=== PATIENT | female | born 1955 | race Hispanic/Latino ===

== ENCOUNTER 2016-10-01 12:31 | Outpatient (CLI) | payer OTHER, MEDICARE ==
[2016-10-02 10:49] LABS: Anion Gap 17 mmol/L (10-20); BUN (Urea Nitrogen) 43 mg/dL (9.8-20.1); Calc. Creatinine Clearance 0 mL/min (70-130); Calcium 9.5 mg/dL (7.8-10.44); Carbon Dioxide 22 mmol/L (23-31); Chloride 102 mmol/L (98-107); Estimated GFR-MDRD 25
[2016-10-02 12:37] LABS: Hematocrit 36.8 % (36.0-47.0)
== END 2016-10-01 12:32 | disposition home or self-care (01) ==
LOC: NAVSJIPCSP 12:31
PROVIDERS: ATTEND Internal Medicine Nephrology
DX: I12.9 Hypertensive chronic kidney disease with stage 1 through stage 4 chronic kidney disease, or unspecified chronic kidney disease (principal); N18.4 Chronic kidney disease, stage 4 (severe)
CPT/HCPCS: 36415; 80048; 85014; 85018

== ENCOUNTER 2016-10-10 09:53 | Outpatient (CLI) | payer MEDICARE, OTHER ==
[2016-10-10 12:25] LABS: Hemoglobin A1c 7.9 % (4.0-6.0)
[2016-10-10 12:56] LABS: Anion Gap 16 mmol/L (10-20); BUN (Urea Nitrogen) 45 mg/dL (9.8-20.1); Calc. Creatinine Clearance 0 mL/min (70-130); Calcium 9.7 mg/dL (7.8-10.44); Carbon Dioxide 21 mmol/L (23-31); Estimated GFR-MDRD 26; LDL Cholesterol, Calculated 197 mg/dL
[2016-10-10 14:55] LABS: Chloride 104 mmol/L (98-107)
== END 2016-10-10 09:54 | disposition home or self-care (01) ==
LOC: NAVSJIPCSP 09:53
PROVIDERS: ATTEND Internal Medicine
DX: E78.5 Hyperlipidemia, unspecified (principal); N18.3 Chronic kidney disease, stage 3 (moderate); E10.59 Type 1 diabetes mellitus with other circulatory complications
CPT/HCPCS: 36415; 80048; 80061; 83036

== ENCOUNTER 2017-01-07 08:54 | Outpatient (CLI) | payer OTHER, MEDICARE ==
[2017-01-07 14:31] LABS: Hemoglobin 10.3 g/dL (12.0-16.0); Mean Corpuscular HGB CONC 31.3 g/dL (32.0-36.0); Mean Corpuscular Hemoglobin 27.1 pg (27.0-31.0); Mean Corpuscular Volume 86.4 fL (81.0-99.0); Mean Platelet Volume 8.3 fL (7.4-10.4); Platelet Count 244 thou/uL (130-400); RBC Distribution Width 13.3 % (11.5-14.5); Red Blood Cell (RBC) Count 3.79 mill/uL (4.20-5.40); White Blood Cell (WBC) Count 6.7 thou/uL (4.8-10.8)
[2017-01-07 14:32] LABS: #Basophils 0.1 thou/uL (0.0-0.2); #Eosinphils 0.2 thou/uL (0.0-0.7); #Lymphocytes 1.5 thou/uL (1.20-3.40); #Monocytes 0.5 thou/uL (0.11-0.59); #Neutrophils 4.5 thou/uL (1.40-6.50); %Basophils 0.8 % (0.0-1.0); %Eosinophils 2.7 % (0.0-10.0); %Monocytes 7.9 % (0.0-10.0); %Neutrophils 66.7 % (42.0-75.0)
[2017-01-07 15:09] LABS: Hemoglobin A1c 8.4 % (4.0-6.0)
[2017-01-07 15:29] LABS: Cardiac Risk 5.6 (Less than 4.5)
== END 2017-01-07 08:55 ==
LOC: NAVSJIPCSP 08:54
PROVIDERS: ATTEND Internal Medicine
DX: E78.5 Hyperlipidemia, unspecified (principal); E10.59 Type 1 diabetes mellitus with other circulatory complications; I11.9 Hypertensive heart disease without heart failure
CPT/HCPCS: 36415; 80061; 83036; 85025

== ENCOUNTER 2017-02-03 12:02 | Outpatient (CLI) | payer OTHER, MEDICARE ==
[2017-02-03 12:52] LABS: Calc. Creatinine Clearance 0 mL/min (70-130); Estimated GFR-MDRD 29; Phosphorus 3.5 mg/dL (2.3-4.7)
== END 2017-02-03 12:03 | disposition home or self-care (01) ==
LOC: NAVSJIPCSP 12:02
PROVIDERS: ATTEND Internal Medicine Nephrology
DX: N18.3 Chronic kidney disease, stage 3 (moderate) (principal)
CPT/HCPCS: 36415; 82565; 84100; 84132

== ENCOUNTER 2017-02-26 12:26 | Outpatient (CLI) | payer MEDICARE, OTHER ==
[2017-02-26 14:07] LABS: Hemoglobin 10.6 g/dL (12.0-16.0)
[2017-02-26 14:20] LABS: Anion Gap 16 mmol/L (10-20); BUN (Urea Nitrogen) 58 mg/dL (9.8-20.1); Calc. Creatinine Clearance 0 mL/min (70-130); Calcium 9.6 mg/dL (7.8-10.44); Carbon Dioxide 22 mmol/L (23-31); Chloride 103 mmol/L (98-107); Estimated GFR-MDRD 22; Glucose 127 mg/dL (80-115); Potassium 5.4 mmol/L (3.5-5.1); Sodium 136 mmol/L (136-145)
[2017-02-27 18:01] LABS: Creatinine, Urine 49.15 mg/dL (47-110)
== END 2017-02-26 12:27 | disposition home or self-care (01) ==
LOC: NAV LABSP 12:26
PROVIDERS: ATTEND Internal Medicine Nephrology
DX: N18.4 Chronic kidney disease, stage 4 (severe) (principal)
CPT/HCPCS: 36415; 80048; 82570; 84156; 85014; 85018

== ENCOUNTER 2017-03-19 12:09 | Outpatient (CLI) | payer MEDICARE ==
[2017-03-19 12:32] LABS: Hemoglobin 10.8 g/dL (12.0-16.0)
[2017-03-19 12:36] LABS: Anion Gap 18 mmol/L (10-20); BUN (Urea Nitrogen) 66 mg/dL (9.8-20.1); Calc. Creatinine Clearance 0 mL/min (70-130); Calcium 9.7 mg/dL (7.8-10.44); Carbon Dioxide 20 mmol/L (23-31); Chloride 102 mmol/L (98-107); Estimated GFR-MDRD 23; Glucose 190 mg/dL (80-115); Sodium 135 mmol/L (136-145)
== END 2017-03-19 12:10 | disposition home or self-care (01) ==
LOC: NAVSJIPCSP 12:09
PROVIDERS: ATTEND Internal Medicine Nephrology
DX: I12.9 Hypertensive chronic kidney disease with stage 1 through stage 4 chronic kidney disease, or unspecified chronic kidney disease (principal); N18.4 Chronic kidney disease, stage 4 (severe); R80.9 Proteinuria, unspecified
CPT/HCPCS: 36415; 80048; 85014; 85018

== ENCOUNTER 2017-04-14 08:53 | Outpatient (CLI) | payer MEDICARE ==
[2017-04-14 11:47] LABS: Anion Gap 19 mmol/L (10-20); BUN (Urea Nitrogen) 80 mg/dL (9.8-20.1); Calc. Creatinine Clearance 0 mL/min (70-130); Calcium 9.4 mg/dL (7.8-10.44); Carbon Dioxide 17 mmol/L (23-31); Chloride 101 mmol/L (98-107); Cholesterol 272 mg/dl (< 200 Desired); Estimated GFR-MDRD 16; Glucose 354 mg/dL (80-115); HDL Cholesterol 39 mg/dL (>60 Neg Risk); LDL Cholesterol, Calculated 184 mg/dL; Potassium 5.1 mmol/L (3.5-5.1); Sodium 132 mmol/L (136-145); Triglycerides 243 mg/dL (Less than 150)
[2017-04-14 12:26] LABS: Hemoglobin A1c 9.1 % (4.0-6.0)
== END 2017-04-14 08:54 | disposition home or self-care (01) ==
LOC: NAVSJIPCSP 08:53
PROVIDERS: ATTEND Internal Medicine
DX: E78.5 Hyperlipidemia, unspecified (principal); E10.59 Type 1 diabetes mellitus with other circulatory complications; I13.10 Hypertensive heart and chronic kidney disease without heart failure, with stage 1 through stage 4 chronic kidney disease, or unspecified chronic kidney disease; E10.22 Type 1 diabetes mellitus with diabetic chronic kidney disease; N18.3 Chronic kidney disease, stage 3 (moderate); Z79.899 Other long term (current) drug therapy
CPT/HCPCS: 36415; 80048; 80061; 83036

== ENCOUNTER 2017-10-13 15:30 | Outpatient (CLI) | payer MEDICARE ==
--- NOTE | 2017-10-13 15:57 | RAD ---
PA AND LATERAL VIEWS CHEST: HISTORY: Shortness of breath, wheezing. FINDINGS: There are changes of median sternotomy. The heart is enlarged. There is mild pulmonary vascular con gestion with probable small effusions. No pneumothorax is seen. IMPRESSION: Findings suggestive of mild congestive heart failure. POS: [facility]
== END 2017-10-13 15:31 | disposition home or self-care (01) ==
LOC: NAV RAD 15:30
PROVIDERS: ATTEND Internal Medicine
DX: R06.02 Shortness of breath (principal)
CPT/HCPCS: 71046

== ENCOUNTER 2017-11-10 08:49 | Outpatient (CLI) | payer MEDICARE | END 2017-11-10 08:50 | disposition home or self-care (01) | LOC: NAV ULT 08:49 | PROVIDERS: ATTEND Internal Medicine | DX: I50.9 Heart failure, unspecified (principal); I25.10 Atherosclerotic heart disease of native coronary artery without angina pectoris; I51.7 Cardiomegaly; R93.1 Abnormal findings on diagnostic imaging of heart and coronary circulation | CPT/HCPCS: 93306 ==

== ENCOUNTER 2018-06-30 19:39 | Emergency (ER) | payer MEDICARE ==
[2018-06-30 20:11] LABS: #Basophils 0.1 thou/uL (0.0-0.2); #Eosinphils 0.2 thou/uL (0.0-0.7); #Lymphocytes 0.4 thou/uL (1.20-3.40); #Monocytes 0.4 thou/uL (0.11-0.59); #Neutrophils 8.1 thou/uL (1.40-6.50); %Basophils 0.7 % (0.0-1.0); %Eosinophils 1.9 % (0.0-10.0); %Lymphocytes 4.2 % (21.0-51.0); %Monocytes 4.7 % (0.0-10.0); %Neutrophils 88.5 % (42.0-75.0); Hemoglobin 9.6 g/dL (12.0-16.0); Mean Corpuscular HGB CONC 31.7 g/dL (32.0-36.0); Mean Corpuscular Volume 88.6 fL (78.0-98.0); Mean Platelet Volume 8.7 fL (7.4-10.4); Platelet Count 203 thou/uL (130-400); RBC Distribution Width 12.5 % (11.5-14.5); Red Blood Cell (RBC) Count 3.43 mill/uL (4.20-5.40); White Blood Cell (WBC) Count 9.2 thou/uL (4.8-10.8)
[2018-06-30] MEDS ORDERED: Sodium Chloride 0.9% 1,000 ML ONE (20:24)
[2018-06-30] MEDS ORDERED: Acetaminophen 500 MG TAB ONE (20:24)
[2018-06-30] MEDS ORDERED: Azithromycin 250 MG TAB ONE (20:24)
[2018-06-30 20:36] LABS: Anion Gap 16 mmol/L (10-20); BUN (Urea Nitrogen) 62 mg/dL (9.8-20.1); Calc. Creatinine Clearance 0 mL/min (70-130); Calcium 9.8 mg/dL (7.8-10.44); Carbon Dioxide 21 mmol/L (23-31); Chloride 100 mmol/L (98-107); Estimated GFR-MDRD 18; Glucose 196 mg/dL (80-115); Potassium 4.2 mmol/L (3.5-5.1); Sodium 133 mmol/L (136-145)
[2018-06-30] MEDS ORDERED: cefTRIAXone\\ROCEPHIN 1 GM VIAL ONE (21:20)
[2018-06-30] MEDS ORDERED: Sodium Chloride 0.9% 100 ML ONE (21:20)
--- NOTE | 2018-06-30 22:23 | RAD ---
CHEST PA AND LATERAL: 06/30/18 HISTORY: 62-year-old female with productive cough and fever since yesterday. COMPARISON: 10/13/17. FINDINGS: There is some rotation to the left. Minimal cardiomegaly. Postop midline sternotomy. Increased linear and interstitial markings bilaterally with slight blunting in the costophrenic angles. This certainl y is consistent with some mild vascular congestion, but when compared to the prior study there does n ot appear to be any significant change. No overt edema or confluent pneumonia. IMPRESSION: Cardiomegaly with some stable appearing bilateral vascular congestion and costophrenic angle blunting without significant change from 10/13/17. POS: [facility]
== END 2018-06-30 22:10 | disposition home or self-care (01) ==
LOC: NAV ERS 19:39
DX: R05 Cough (principal); R11.2 Nausea with vomiting, unspecified; R50.9 Fever, unspecified; E11.9 Type 2 diabetes mellitus without complications; E78.00 Pure hypercholesterolemia, unspecified; I10 Essential (primary) hypertension; Z79.4 Long term (current) use of insulin; Z79.899 Other long term (current) drug therapy
CPT/HCPCS: 71046; 80048; 85025; 87804; 96361; 96365; J0696; J7050; J7620

== ENCOUNTER 2018-10-13 13:03 | Outpatient (CLI) | payer MEDICARE ==
[2018-10-13 13:34] LABS: Hemoglobin 10.8 g/dL (12.0-16.0)
[2018-10-13 13:38] LABS: Anion Gap 15 mmol/L (10-20); BUN (Urea Nitrogen) 38 mg/dL (9.8-20.1); Calc. Creatinine Clearance 0 mL/min (70-130); Calcium 10.4 mg/dL (7.8-10.44); Carbon Dioxide 25 mmol/L (23-31); Chloride 103 mmol/L (98-107); Estimated GFR-MDRD 24; Glucose 121 mg/dL (80-115); Potassium 4.3 mmol/L (3.5-5.1); Sodium 139 mmol/L (136-145)
[2018-10-13 13:46] LABS: Follow-up Chemistry Comp? YES; Follow-up Hematology Comp? YES; Follow-up Result - Chemistry REPORT FAXED; Follow-up Result - Hematology REPORT FAXED
== END 2018-10-13 13:04 | disposition home or self-care (01) ==
LOC: NAV LABSP 13:03
PROVIDERS: ATTEND Internal Medicine Nephrology
DX: E11.22 Type 2 diabetes mellitus with diabetic chronic kidney disease (principal); N18.9 Chronic kidney disease, unspecified; D63.1 Anemia in chronic kidney disease; E11.00 Type 2 diabetes mellitus with hyperosmolarity without nonketotic hyperglycemic-hyperosmolar coma (NKHHC)
CPT/HCPCS: 36415; 80048; 85014; 85018

== ENCOUNTER 2018-11-07 10:39 | Emergency (ER) | payer MEDICARE ==
[2018-11-07] MEDS ORDERED: Ondansetron PF 4 MG/2 ML Vial ONE (11:06)
[2018-11-07] MEDS ORDERED: Acetaminophen 500 MG TAB ONE (11:31)
[2018-11-07 11:34] LABS: Band 4 % (5-11); Hemoglobin 11.7 g/dL (12.0-16.0); Lymphocytes 2 % (21-51); MDiff Complete? YES; Mean Corpuscular HGB CONC 31.5 g/dL (32.0-36.0); Mean Corpuscular Hemoglobin 27.7 pg (27.0-31.0); Mean Corpuscular Volume 87.9 fL (78.0-98.0); Mean Platelet Volume 9.2 fL (7.4-10.4); Metamyelocyte 1 % (0-0); Monocytes 10 % (0-10); Neutrophil 83 % (42-75); Platelet Count 136 thou/uL (130-400); RBC Distribution Width 13.5 % (11.5-14.5); Red Blood Cell (RBC) Count 4.21 mill/uL (4.20-5.40); White Blood Cell (WBC) Count 6.9 thou/uL (4.8-10.8)
[2018-11-07 11:35] LABS: ALT (SGPT) 36 U/L (8-55); AST (SGOT) 38 U/L (5-34); Alkaline Phosphatase 112 U/L (40-150); Anion Gap 15 mmol/L (10-20); BUN (Urea Nitrogen) 46 mg/dL (9.8-20.1); Bilirubin, Total 0.4 mg/dL (0.2-1.2); Calc. Creatinine Clearance 0 mL/min (70-130); Calcium 9.9 mg/dL (7.8-10.44); Carbon Dioxide 23 mmol/L (23-31); Chloride 102 mmol/L (98-107); Estimated GFR-MDRD 23; Globulin 3.1 g/dL (2.4-3.5); Glucose 316 mg/dL (80-115); Potassium 4.1 mmol/L (3.5-5.1); Protein, Total 7.1 g/dL (6.0-8.3); Sodium 136 mmol/L (136-145)
[2018-11-07 11:42] LABS: Base Excess-Venous 0.2 mmol/L (-2.0 to 3.0); Bicarbonate (HCO3v) 24.2 mmol/L (22.0-28.0); CO2 Tension (PvCO2) 36.5 mmHg (40.0-50.0); Calcium, Ionized 1.17 mmol/L (See Comments:); Hemoglobin - Calc 12.8 g/dL (12.0-16.0)
[2018-11-07 12:02] LABS: Chloride 101 mmol/L (98-107); Potassium 3.9 mmol/L (3.5-5.1); Sodium 136 mmol/L (138-145); T. Carbon Dioxide 25.3 mmol/L (22.0-28.0)
--- NOTE | 2018-11-07 12:12 | RAD ---
PORTABLE CHEST: Date: 11/07/18 HISTORY: Fever. COMPARISON: 06/30/18. FINDINGS: Mild cardiomegaly with postop sternotomy change again noted. There is mild vascular engorgement. No f ocal infiltrate or significant effusion. Tiny effusions are not excluded, although the CP angles are unchanged in appearance from the prior study. IMPRESSION: Cardiomegaly and mild vascular engorgement, stable from prior exam. POS: [facility]
[2018-11-07 12:32] LABS: Bilirubin Negative (Negative); Blood, Urine Trace (Negative); Glucose, Urine (Dipstick) 100 mg/dL (Negative); Leukocyte Negative (Negative); Nitrite Positive (Negative); Protein, Urine (Dipstick) > or equal to 300 mg/dL (Neg-Trace); Urobilinogen 0.2 mg/dL (0.2-1.0); pH, Urine 5.5 (5.0-9.0)
[2018-11-07 12:38] LABS: Clarity SL HAZY (Clear)
[2018-11-07 12:40] LABS: RBC/HPF 0-3 HPF (0-3)
[2018-11-07 12:41] LABS: Bacteria/HPF 2+ HPF (None Seen); Squamous Epithelial 0-3 HPF (0-3); Transitional Epithelial 0-3 HPF (0-3); WBC/HPF 0-3 HPF (0-3)
[2018-11-07] MEDS ORDERED: Oseltamivir 75 MG CAP ONE (12:48)
== END 2018-11-07 13:11 | disposition home or self-care (01) ==
LOC: NAV ER/OP 10:39 → NAV ERS 13:11
DX: J11.1 Influenza due to unidentified influenza virus with other respiratory manifestations (principal); E11.9 Type 2 diabetes mellitus without complications; I11.0 Hypertensive heart disease with heart failure; I50.9 Heart failure, unspecified; E78.00 Pure hypercholesterolemia, unspecified; Z79.899 Other long term (current) drug therapy; Z79.4 Long term (current) use of insulin
CPT/HCPCS: 71045; 80053; 81003; 81015; 82330; 82803; 83605; 85014; 85025; 87040; 87804; 96374; J2405